=== PATIENT | male | born 1940 | race Caucasian/White ===

== ENCOUNTER 2024-04-24 09:59 | Emergency (ER) | payer OTHER ==
[2024-04-24 10:40] VITALS: BP 0/0; PULSE 0; RESP 0; BMI 17.9
== END 2024-04-24 13:40 | disposition expired ==
LOC: JER 09:59
PROC: 5A12012 Performance of Cardiac Output, Single, Manual (ICD-10-PCS; principal; 2024-04-24)
PROC: 0BH17EZ Insertion of Endotracheal Airway into Trachea, Via Natural or Artificial Opening (ICD-10-PCS; 2024-04-24)
DX: I46.9 Cardiac arrest, cause unspecified (principal)
CPT/HCPCS: 99291